=== PATIENT | male | born 1950 | race African-American/Black ===

== ENCOUNTER 2017-06-06 12:46 | Emergency (ER) | payer SELFPAY ==
[~2017-06-06] VITALS: Ht 185.4 cm; Wt 79.0 kg
[2017-06-06 13:35] VITALS: BP 151/94
== END 2017-06-06 19:27 | disposition left against medical advice (07) ==
LOC: ER 12:46
DX: M54.9 Dorsalgia, unspecified (principal); Z53.21 Procedure and treatment not carried out due to patient leaving prior to being seen by health care provider